=== PATIENT | female | born 1985 | race Caucasian/White ===

== ENCOUNTER 2018-01-28 10:52 | Emergency (ER) | payer OTHER ==
[~2018-01-28] VITALS: Ht 157.5 cm; Wt 51.3 kg
[~2018-01-28 10:52] MED LIST: AMIT25 PO; BCP; CIPR250 PO; CIPR500 PO; DIPH50 PO; FENT25TP TOP; FENT50TP TOP; GABA600 PO; HYDACE10B PO; HYDACE5 PO; IBUP800 PO; LORA.5 PO; MEDR150I; MEDR150I IM; METPHE10 PO; MINO100 PO; NAPR500 PO; OXYACE5T; OXYACE5T PO; OXYACE7.5T PO; OXYC40ER; OXYC5 PO; PHENA200 PO; PREG50 PO; PROC10 PO; PROM25 PO; QUET25 PO; RXOXYACE PO
[2018-01-28] MEDS ORDERED: DIPH50 PO (11:11)
[2018-01-28] MEDS ORDERED: PROM25 (11:11)
[2018-01-28] MEDS ORDERED: Inderal40 MG (11:11)
[2018-01-28] MEDS ORDERED: OXYC5 (11:12)
[2018-01-28 11:37] LABS: BASOPHILS ABSOLUTE AUTO 0.09 K/mm3 (0.00-0.23); BASOPHILS PERCENT AUTO 1 % (0-2); EOSINOPHILS PERCENT AUTO 2 % (0-6); Hemoglobin 14.9 g/dL (11.5-16.0); IMMATURE GRAN ABSOLUTE AUTO 0.03 K/mm3 (0.00-0.10); IMMATURE GRAN PERCENT AUTO 0 % (0-1); LYMPHOCYTES ABSOLUTE AUTO 0.99 K/mm3 (0.84-5.20); LYMPHOCYTES PERCENT AUTO 8 % (21-46); MONOCYTES ABSOLUTE AUTO 0.48 K/mm3 (0.16-1.47); MONOCYTES PERCENT AUTO 4 % (4-13); Mean Corpuscular HGB 31.6 pg (26.0-34.0); Mean Corpuscular HGB Conc 34.7 g/dL (31.5-36.5); Mean Corpuscular Volume 91 fL (80-100); Mean Platelet Volume 8.9 fL (9.1-12.4); NEUTROPHILS ABSOLUTE AUTO 11.05 K/mm3 (1.96-9.15); NEUTROPHILS PERCENT AUTO 86 % (41-73); Platelet Count 275 K/mm3 (150-400); RDW Coefficient Variation 12.5 % (11.7-14.2); Red Blood Cell Count 4.71 M/mm3 (3.80-5.20); White Blood Cell Count 12.84 K/mm3 (4.00-11.30)
[2018-01-28 12:01] LABS: Alanine Aminotransfer (ALT/SGP 59 U/L (12-78); Albumin, Blood 4.1 g/dL (3.4-5.0); Alk Phos 85 U/L (50-136); Anion Gap 7 mmol/L (6-16); Aspartate Aminotrans (AST/SGOT 36 U/L (12-37); Bilirubin, Total 1.3 mg/dL (0.1-1.0); Blood Urea Nitrogen 13 mg/dL (8-24); CO2, Blood 28 mmol/L (21-32); Calcium, Blood 9.1 mg/dL (8.5-10.1); Chloride, Blood 104 mmol/L (98-108); Creatinine, Blood 0.57 mg/dL (0.40-1.00); Globulin, Blood 4.3 g/dL (2.2-4.0); Glomerular Filtration Rate >60 (60-); Glucose, Blood 90 mg/dL (70-99); Potassium, Blood 3.8 mmol/L (3.5-5.5); Sodium, Blood 139 mmol/L (136-145); Total Protein, Blood 8.4 g/dL (6.4-8.2); Troponin I <0.015 ng/mL (0.000-0.040)
[2018-01-28] MEDS ORDERED: Ativan1 MG SL (16:08)
[2018-01-28] MEDS ORDERED: PROM25 PO (16:08)
[2018-01-28] MEDS ORDERED: Percocet 5-3251 EACH PO (16:44)
== END 2018-01-28 16:50 | disposition home or self-care (01) ==
LOC: ER 10:52
PROVIDERS: Emergency Medicine
DX: F41.9 Anxiety disorder, unspecified (principal); G89.29 Other chronic pain; Z87.442 Personal history of urinary calculi; Z94.0 Kidney transplant status
CPT/HCPCS: 36415; 70553; 71046; 80053; 84443; 84484; 85025; 93005; 93010; 96374; 96375; 99284; A9577; J2060; J2405; J2550